=== PATIENT | male | born 1990 | race Caucasian/White ===

== ENCOUNTER 2017-01-25 11:31 | Emergency (ER) | payer BC ==
[2017-01-25 11:46] VITALS: BP 145/91
[2017-01-25] MEDS ORDERED: METOCLOPRAMIDE HCL 5 MG/ML VIAL IV ONE (12:03)
[2017-01-25] MEDS ORDERED: METHYLPREDNISOLONE SOD SUCC/PF 40 MG/ML VIAL IV ONE (12:03)
[2017-01-25] MEDS ORDERED: NORMAL SALINE 1,000 ML IV ONE (12:03)
[2017-01-25] MEDS ORDERED: diphenhydrAMINE HCL 50 MG/ML VIAL IV ONE (12:03)
[2017-01-25] MEDS ORDERED: METHYLPREDNISOLONE SOD SUCC/PF 125 MG/2 ML VIAL ONE (12:11)
[2017-01-25] MEDS ORDERED: diphenhydrAMINE HCL 50 MG/ML VIAL ONE (12:11)
[2017-01-25] MEDS ORDERED: METOCLOPRAMIDE HCL 5 MG/ML VIAL ONE (12:11)
--- NOTE | 2017-01-25 12:20 | ERNOTE ---
Headache ER HPI - General Presenting Symptoms: headache, "migraine" Time Seen by Provider: 01/25/17 11:56 Source: patient - Immun/Allergies/Home Medications Immunizations: IMMUNIZATION HX Immunizations Up to Date Yes Allergies/Adverse Reactions: Allergies No Known Allergies Allergy (Unverified 01/25/17 11:46) Home Medications: HOME MEDICATIONS NK [No Home Medication] 01/25/17 [Last Taken Unknown] - Pain Pain Score: 7 - History of Present Illness Narrative: Patient complains of a moderate to severe headache for the past 3 weeks. While only mild nausea is present he does have a degree of photophobia. Patient has had headaches in the past but none have lasted for 3 weeks. Approximately 2 weeks ago the headache was of such significance that he became a little bit disoriented, had some difficulty focusing and had some dizziness as well Timing of Headache: gradual Quality: Present: throbbing Severity Maximum: Present: moderate Associated Symptoms: Reports: vision changes Exacerbated by:: Reports: light Review of Systems - Review of Systems Constitutional: Present: See HPI EYE: Present: no symptoms reported ENT: Present: no symptoms reported Respiratory: Present: no symptoms reported Cardiology: Present: no symptoms reported Gastrointestinal/Abdominal: Present: no symptoms reported Genitourinary: Present: no symptoms reported Musculoskeletal: Present: no symptoms reported Skin: Present: no symptoms reported Neurological: Present: See HPI, headache Endocrine: Present: no symptoms reported Hematologic/Lymphatic: Present: no symptoms reported Psych: Present: no symptoms reported - Patient's Past Medical History Patient History - Medical: No pertinent hx Patient History - Cardiac/Respiratory: No pertinent hx Patient History - Cancer: No Hx of Cancer Patient History - Surgical Procedures: Other - Social History Smoking Status: Never smoker Have you smoked in the past 12 months: No - Immunizations Immunizations Up to Date: Yes Physical Exam - Physical Exam General Appearance: Present: wd/wn, alert, moderate distress Eye Exam: Normal inspection: bilateral, PERRL: bilateral Ears, Nose, Throat: Present: normal ENT inspection, H, normal pharynx Neck: Present: normal inspection, nontender Respiratory: Present: no respiratory distress, normal breath sounds, no accessory muscle use, chest nontender, lungs clear Cardiovascular/Chest: Present: regular rate, rhythm, no murmur, normal peripheral pulses Gastrointestinal/Abdominal: Present: normal bowel sounds, nontender, nondistended, soft, no organomegaly Rectal Exam: Present: deferred Back Exam: Present: normal inspection, normal range of motion Extremity Exam: Present: normal inspection, non-tender, no edema, normal range of motion Neurological Exam: Present: alert, oriented, normal mood/affect Skin Exam: Present: normal color, warm/dry Lymphatic Exam: Present: no adenopathy ED Progress - Results and Orders Patient's Lab Results:: I have reviewed the patient's lab results. - Vital Signs Patient's Vital Signs:: I have reviewed the patient's vital signs. Vital Signs: Vital Signs 01/25/17 11:43 Temperature 36.4 C L Pulse Rate 72 Respiratory 14 Rate Blood Pressure 145/91 O2 Sat by Pulse 97 Oximetry - CT/Ultrasound CT/Ultrasound Narrative: CT reviewed - Progress/Reassessment Chief Complaint: Headache Progress:: Pain free at discharge Plan - Plan Plan: Patient appears to have a new onset of migraine headaches. At this juncture I don't feel the need to start him on any medications, but we will have him follow -up with his family physician within the next week to 10 days. Departure Clinical Impression: Migraine Qualifiers: Migraine type: without aura Status migrainosus presence: without status migrainosus Intractability: intractable Qualified Code(s): G43.019 - Migraine without aura, intractable, without status migrainosus - Departure Disposition: Home self-care Condition: Good Instructions: Migraine Headache, [id number]
[2017-01-25 12:39] LABS: Hematocrit 37.2 % (42.0-52.0); Hemoglobin 13.3 gm/dL (13.5-18.0); Mean Cell Volume 82.1 fl (78-100); Mean Corpuscular Hemoglobin 29.4 pg (27-31); Mean Corpuscular Hgb Conc 35.8 g/dl (32-36); Mean Platelet Volume 9.5 fl (6.0-9.5); Neutrophil # 2.6 K/mm3 (1.3-6.0); Neutrophil % 41.9 % (42-75.0); Platelet Count 234 K/mm3 (150-450); Red Blood Count 4.53 M/mm3 (4.7-6.0); Red Cell Distribution Width 14.6 % (11.5-14.0); White Blood Count 6.3 K/mm3 (4.0-10.5)
[2017-01-25 12:52] LABS: Albumin * 4.1 gm/dl (3.4-5.0); BUN/Creatinine Ratio 17.2 (9.0-21.6); Bilirubin, Total 0.5 mg/dL (0.0-1.1); Ca. Corrected For Albumin 8.6 mg/dL (8.4-10.2); Carbon Dioxide 27.6 mmol/L (24-32.6); Magnesium 1.8 mg/dL (1.2-2.8); Potassium 3.6 mmol/L (3.4-4.6); Total Protein 7.7 gm/dL (6.2-8.2)
== END 2017-01-25 13:35 | disposition home or self-care (01) ==
LOC: ER 11:31
DX: G43.019 Migraine without aura, intractable, without status migrainosus (principal)